=== PATIENT | male | born 1995 | race Caucasian/White ===

== ENCOUNTER 2024-03-08 08:09 | Emergency (ER) | payer BC, SELFPAY ==
--- NOTE | 2024-03-08 08:15 | ED.MALEGU ---
HPI - Male Genitourinary General Chief complaint: Urogenital-Male Stated complaint: Possible UTI Time Seen by Provider: 03/08/24 08:15 Source: patient Mode of arrival: ambulatory Limitations: no limitations History of Present Illness HPI Narrative: [place] a 28-year-old male patient presenting to the clinic today with complaints of possible urinary tract infection. He reports over the past week he has had some slight burning with urination and urinary frequency. Notice more burning with urination yesterday. Has had intercourse with his girlfriend yesterday and noticed the burning was worse. He denies any concern for sexually transmitted infections. He has a monogamous relationship with his girlfriend for over 1 year. Denies any penile discharge. States he did have some sharp pain over the bladder yesterday. Denies blood in his urine. No fevers, chills, body aches, or back pain. No history of BPH, kidney stones, or prostatitis. Related Data Allergies Allergy/AdvReac Type Severity Reaction Status Date / Time No Known Allergies Allergy Verified 03/08/24 08:32 Review of Systems Review of Systems: Pertinent positives per HPI. Patient denies any fever, chills, rash, headache, visual changes, dizziness, cough, runny nose, sore throat, shortness of breath, chest pain, palpitations, nausea, vomiting, diarrhea, constipation PMFSH Comments At the time of my signature, I reviewed and agree with the nursing past medical, surgical, social, and family history. There is no relevant family history pertinent to the patient complaint. Exam Narrative: General: Well-developed, well nourished, in no apparent distress. Head: Normocephalic, atraumatic. Cardio: Regular rate and rhythm, s1 and s2 normal, no murmur appreciated. Resp: Clear to auscultation bilaterally, no rhonchi, rales, wheezing or rubs. Abdomen: Soft, pliable, bowel sounds present in all quadrants, non-tender to palpation, no organomegly, no CVAT tenderness. Course Course Emergency Course: Portions of this record may have been created with voice recognition software. Level of Care: Express Care Visit Vital Signs Vital signs: Vital Signs Temperature 36.3 C L 03/08/24 08:26 Pulse Rate 56 L 03/08/24 08:26 Respiratory Rate 16 03/08/24 08:26 Blood Pressure 125/74 03/08/24 08:26 Pulse Oximetry 100 03/08/24 08:26 Oxygen Delivery Room Air 03/08/24 08:26 Temperature 36.3 C L 03/08/24 08:26 Pulse Rate 56 L 03/08/24 08:26 Respiratory Rate 16 03/08/24 08:26 Blood Pressure 125/74 03/08/24 08:26 Pulse Oximetry 100 03/08/24 08:26 Oxygen Delivery Room Air 03/08/24 08:26 Vital signs reviewed MDM - Male Genitourinary MDM Narrative Medical decision making narrative: At the time of visit patient is resting comfortably on the exam table. Patient appears to be nontoxic. Labs: UA dip negative for blood, leukocytes, or protein. We will send urine for STI testing Plan: We will send urine for STI testing. UA dip was negative for any sign of infection. Will send in prescription for Pyridium as needed. Discussed if patient insurance does not cover this he can take [id number] azo for his symptoms. Will wait on STI results. He did tell me that he has actually increased caffeine this week and has been drinking and additional coffee. Recommend stopping the coffee and seeing if this helps his symptoms and drinks 2 red Bulls. Supportive measures were discussed with the patient and they voiced understanding discharge instructions and agrees to treatment plan. Return precautions reviewed Differential Diagnosis Differential diagnosis: Likely urinary tract infection, urethritis, epididymitis, prostatitis, acute retention of urine and inguinal hernia Lab Data Labs: Lab Results 03/08/24 Range/Units 08:48 POC Urine Color Yellow POC Urine Clarity Clear POC Urine pH 5.5 POC Ur Specif [place] 1.025 POC Urine Protein Negative (Negative) POC Ur Glucose (UA) Negative (Negative) POC Urine Ketones Negative (Negative) POC Urine Blood Negative (Negative) POC Urine Nitrite Negative (Negative) POC Urine Bilirubin Negative (Negative) POC Urine Urobilinogen 0.2 POC U Leukocyte Esteras Negative (Negative) Discharge Plan Discharge Clinical Impression: Dysuria Patient Disposition: Home, Self-Care Condition: Stable Instructions: Antibiotic Form, Dysuria (ED) Additional Instructions: Increase fluids and stay well hydrated. May take Pyridium as needed for urinary discomfort-if your insurance does not cover this medication you can take [id number] AZO If sexually active- pee before and after intercourse. Wear absorbing underwear Avoid tight clothing up against the genitals Follow up with your PCP in 1 week if symptoms persist. We have tested/treated you for STIs in the clinic today. Avoid any sexual activity- includes oral, anal, or vaginal intercourse until you get results back and have completed any additional recommended treatment regimens. We will contact you if testing is positive and make sure your treatment was appropriate for the type of STI. If symptoms worsen after treatment recommend reevaluation with your PCP or Express care. Prescriptions: New phenazopyridine [Pyridium] 200 mg tablet 200 mg PO TID PRN (Reason: pain) Qty: 6 0RF Follow-up/Referrals: UNKNOWN,DOCTOR [Non-Staff] - Time of Disposition: 08:49 Quality NIHSS Nursing Documentation ED NIHSS nursing documentation: reviewed/agree
[2024-03-08 08:26] VITALS: BP 125/74; PULSE 56; RESP 16; TEMP 36.3; O2SAT 100
[2024-03-08 08:51] LABS: EDUAAPPEAR Clear; EDUABILI Negative (Negative); EDUABLOOD Negative (Negative); EDUACOLOR1 Yellow; EDUAGLUCOSE Negative (Negative); EDUAKETONE Negative (Negative); EDUALEUKO Negative (Negative); EDUANITRATE Negative (Negative); EDUAPH 5.5; EDUAPROTEIN Negative (Negative); EDUASPGRAVITY 1.025; EDUAUROBILI 0.2
[2024-03-08 20:25] LABS: Trichomonas Vag PCR NOT DETECTED (NOT DETECTE)
[2024-03-08 20:51] LABS: Chlamydia trachomatis DETECTED (NOT DETECTE); Neisseria gonorrhoeae PCR NOT DETECTED (NOT DETECTE)
== END 2024-03-08 09:02 | disposition home or self-care (01) ==
PROVIDERS: Emergency Provider Nurse Practitioner Family
DX: R30.0 Dysuria (principal); A74.9 Chlamydial infection, unspecified
CPT/HCPCS: 81003; 87491; 87591; 87661; 99203; G0463